=== PATIENT | female | born 1980 | race Caucasian/White ===

== ENCOUNTER 2019-11-19 16:02 | Inpatient (IN) | payer BC ==
[~2019-11-19] VITALS: Ht 177.8 cm; Wt 105.5 kg
[~2019-11-19 16:02] MED LIST: MOTRIN 600600 MG/TAB PO; PRENATAL MVI
[2019-11-20] VITALS (63 sets, daily range): BP systolic 105–133; BP diastolic 55–91; PULSE 75–111; TEMP 97.6–98.5
--- NOTE | 2019-11-20 07:05 | NUR ---
Patient ambulatory onto unit with at side for scheduled induction of labor. Patient oriented to room and changes into gown. Plan of care discussed with patient. EFMs on, VS taken. IV attempted x1 by arnulfo RN, IV started by Shyla CARRASCO. Labs drawn from IV start. LR infusing per orders. Admission assessment completed. Consents signed. Patient reports good movement and occasional tightening with contractions. Patient denies vaginal bleeding or leaking of fluid. SVE 1-2/50/-3. Pitocin started per protocol.
[2019-11-20] MEDS ORDERED: PRILOSEC10 MG PO (07:25)
[2019-11-20] MEDS ORDERED: NATURAL IRON65 MG PO (07:26)
[2019-11-20 07:44] LABS: BASO % 0.4 % (0.0-2.0); EOS # 0.1 (0.0-0.7); EOS % 0.9 % (0-4.0); GRAN # 6.1 (1.4-6.5); GRAN % 68.5 % (42.2-75.2); HEMOGLOBIN 11.1 g/dl (12.5-16.0); LYMPH # 1.8 (1.2-3.4); LYMPH % 19.8 % (20.0-51.0); MEAN CELL VOLUME 79 fl (80.0-100.0); MEAN CORPUSCULAR HEMOGLOBIN 25 pg (27.0-31.0); MEAN CORPUSCULAR HGB CONC 32 g/dl (33.0-37.0); MEAN PLATELET VOLUME 10.7 fl (7.4-10.4); MONO # 0.8 (0.1-0.6); MONO % 9.3 % (1.7-9.3); PLATELET COUNT 209 K/mm3 (130-400); RED BLOOD COUNT 4.46 M/mm3 (4.10-5.30); REDCELL DISTRIBUTION WIDTH-CV 15.8 % (11.5-14.5)
[2019-11-20 07:45] LABS: HEMATOCRIT 35.1 % (37.0-47.0)
--- NOTE | 2019-11-20 08:50 | NUR ---
at bedside. Vertex position verified by ultrasound. Plan of care discussed. Questions answered. Call light within reach.
--- NOTE | 2019-11-20 09:45 | NUR ---
Patient reports that she is starting to feel cramping with contractions. Denies need for pain intervention at this time. Declines wanting to stand or use birthing ball at this time. at bedside. Call light within reach.
--- NOTE | 2019-11-20 10:20 | NUR ---
Patient states she is feeling her contractions more but only rating pain at 2-3/10. Denies needs at this time. remains at bedside. Call light within reach.
--- NOTE | 2019-11-20 11:45 | NUR ---
to bedside. AROM at 1146, moderate amount of clear fluid noted. SVE 2/50/-3 per provider. Questions answered. Call light within reach.
--- NOTE | 2019-11-20 13:35 | NUR ---
Patient up to bathroom. Bed linen changed - saturated with copious amounts of clear amniotic fluid. Patient now standing at bedside. Continues to rate pain at 3/10. Will continue to monitor. at bedside. Call light within reach.
--- NOTE | 2019-11-20 15:25 | NUR ---
Patient calls out requesting epidural placement. Jaz BARKER OPERATOR notified.
--- NOTE | 2019-11-20 16:00 | NUR ---
1540: Patient sitting up for epidural placement. Jaz LAIRD at bedside. 1544: Lidocaine. 1546: Epidural Catheter. 1548: Test Dose given by Jaz LAIRD, no adverse reaction noted. 1555: Patient repositioned to left tilt. Plan of care discussed. Questions answered. Call light within reach.
--- NOTE | 2019-11-20 17:20 | NUR ---
to bedside. SVE /-2 per provider. Plan of care discussed with patient and . Questions answered. Call light wtihin reach.
--- NOTE | 2019-11-20 18:30 | NUR ---
Patient repositioned to left tilt with peanut ball in place. Report to Stephy CARRASCO to assume care of patient at this time.
--- NOTE | 2019-11-20 23:07 | NUR ---
ONE PRACTICE PUSH PERFORMED WITH THIS NURSE, PUSHES WELL, WILL NOTIFY DR. RICHARDS OF IMPENDING DELIVERY.
[2019-11-21] VITALS (11 sets, daily range): BP systolic 98–125; BP diastolic 52–77; PULSE 83–93; TEMP 97.5–98
--- NOTE | 2019-11-21 00:28 | NUR ---
2352- 0.2MG IM METHERGINE GIVEN IN LEFT THIGH PER DR. RICHARDS. 0028- 2GM IV ANCEF GIVEN PER DR. RICHARDS DUE TO MANUAL REMOVAL OF PLACENTA.
--- NOTE | 2019-11-21 01:28 | NUR ---
2310- DR. RICHARDS NOTIFIED OF IMPENDING DELIVERY, ON HIS WAY TO HOSPITAL NOW. 2317- GAY DC'D, 1150MLS OUT. PERICARE PROVIDED. 2320- PT BEGINS PUSHING WITH THIS NURSE. 2326- DR. RICHARDS IN ROOM FOR DELIVERY. 2338- MIDLINE EPISIOTOMY PERFORMED BY DR. RICHARDS. 2338- SPONTANEOUS VAGINAL DELIVERY OF VIABLE BABY GIRL THROUGH LOOSE NUCHAL CORD X1, CORD CLAMPED BY DR. RICHARDS AND CUT BY MOTHER. BABY TO MOTHER'S CHEST, BABY CARES ASSUMED BY LUNA ATKINSON. 2346- MANUAL REMOVAL OF INTACT PLACENTA, PITOCIN STARTED PER PROTOCOL. 2355- REPAIR OF 2ND DEGREE AND MIDLINE EPISIOTOMY COMPLETED BY DR. RICHARDS. 0000- RECOVERY STARTED.
[2019-11-21 07:24] LABS: HEMATOCRIT 33.8 % (37.0-47.0); HEMOGLOBIN 10.8 g/dl (12.5-16.0)
[2019-11-21] MEDS ORDERED: IBU600 MG PO (09:54)
[2019-11-22 06:40] VITALS: BP 105/60; PULSE 86; TEMP 98
== END 2019-11-22 10:30 | disposition home or self-care (01) | DRG 807 ==
LOC: LDR 16:02 → OB 11-20 07:00 → LDR 11-20 07:00 → OB 11-21 02:20
PROVIDERS: ADMIT Obstetrics & Gynecology
PROC: 10E0XZZ Delivery of Products of Conception, External Approach (ICD-10-PCS; principal; 2019-11-21)
PROC: 10D17Z9 Manual Extraction of Products of Conception, Retained, Via Natural or Artificial Opening (ICD-10-PCS; 2019-11-21)
PROC: 0W8NXZZ Division of Female Perineum, External Approach (ICD-10-PCS; 2019-11-21)
PROC: 10907ZC Drainage of Amniotic Fluid, Therapeutic from Products of Conception, Via Natural or Artificial Opening (ICD-10-PCS; 2019-11-21)
PROC: 3E033VJ Introduction of Other Hormone into Peripheral Vein, Percutaneous Approach (ICD-10-PCS; 2019-11-21)
DX: O99.214 Obesity complicating childbirth (principal); Z37.0 Single live birth; O99.013 Anemia complicating pregnancy, third trimester; D64.9 Anemia, unspecified; O69.1XX0 Labor and delivery complicated by cord around neck, with compression, not applicable or unspecified; O43.123 Velamentous insertion of umbilical cord, third trimester; O62.2 Other uterine inertia; Z3A.39 39 weeks gestation of pregnancy
CPT/HCPCS: J0690; J2210; J2590; J2791; J7120

== ENCOUNTER → 2020-07-14 | Outpatient (CLI) | payer BC ==
[~2020-07-14] MED LIST changes: +IBU600 MG PO; +NATURAL IRON65 MG PO; +PRILOSEC10 MG PO
== END ==
LOC: MC.RAD 09:54
DX: Z12.31 Encounter for screening mammogram for malignant neoplasm of breast (principal)

== ENCOUNTER → 2020-12-15 | Outpatient (CLI) | payer BC ==
[2020-12-15 09:42] LABS: BASO % 0.5 % (0.0-2.0); EOS # 0.1 (0.0-0.7); EOS % 1.1 % (0-4.0); GRAN # 4.8 (1.4-6.5); HEMATOCRIT 42.9 % (37.0-47.0); HEMOGLOBIN 14.1 g/dl (12.5-16.0); LYMPH # 1.2 (1.2-3.4); LYMPH % 18.5 % (20.0-51.0); MEAN CELL VOLUME 84 fl (80.0-100.0); MEAN CORPUSCULAR HEMOGLOBIN 27 pg (27.0-31.0); MEAN CORPUSCULAR HGB CONC 33 g/dl (33.0-37.0); MEAN PLATELET VOLUME 10.6 fl (7.4-10.4); MONO # 0.4 (0.1-0.6); MONO % 6.6 % (1.7-9.3); PLATELET COUNT 219 K/mm3 (130-400); RED BLOOD COUNT 5.14 M/mm3 (4.10-5.30); REDCELL DISTRIBUTION WIDTH-CV 14.6 % (11.5-14.5)
[2020-12-15 09:51] LABS: PROTHROMBIN TIME 10.9 SECONDS (9.7-12.8)
[2020-12-15 09:54] LABS: PARTIAL THROMBOPLASTIN TIME 32.2 SECONDS (26.0-37.0)
[2020-12-15 10:11] LABS: FIBRINOGEN 384 mg/dL (200-450)
[2020-12-15 10:20] LABS: D-DIMER < 200.00 ng/mLDDu (200-230)
== END ==
LOC: COL.LAB 09:03
PROVIDERS: Physician Assistant
DX: M79.605 Pain in left leg (principal)